=== PATIENT | male | born 2000 | race Hispanic/Latino ===

== ENCOUNTER 2024-03-13 05:46 | Observation (INO) | payer SELFPAY ==
[2024-03-13 06:58] LABS: #Basophils 0.04 10x3/uL (0.0-0.2); %Basophils 0.3 % (0.0-1.0); %Eosinophils 1.8 % (0.0-10.0); %Lymphocytes 14.1 % (21.0-51.0); %Monocytes 8.6 % (0.0-10.0); %Neutrophils 74.8 % (42.0-75.0); Hematocrit 44.1 % (42.0-52.0); Hemoglobin 15.1 g/dL (14.0-18.0); Mean Corpuscular HGB CONC 34.2 g/dL (32.0-36.0); Mean Corpuscular Hemoglobin 30.1 pg (27.0-31.0); Mean Platelet Volume 10.6 fL (7.4-10.4); Platelet Count 266 10x3/uL (130-400); RBC Distribution Width 13.3 % (11.5-14.5); Red Blood Cell (RBC) Count 5.01 mill/uL (4.70-6.10)
[2024-03-13 07:21] LABS: ALT (SGPT) 42 U/L (8-55); AST (SGOT) 16 U/L (5-34); Albumin 4.3 g/dL (3.5-5.0); Alkaline Phosphatase 89 U/L (40-110); Anion Gap 16 mmol/L (10-20); BUN (Urea Nitrogen) 14 mg/dL (8.9-20.6); Bilirubin, Total 1.5 mg/dL (0.2-1.2); Calc. Creatinine Clearance 0 mL/min (70-130); Calcium 9.9 mg/dL (7.8-10.44); Carbon Dioxide 22 mmol/L (22-29); Chloride 105 mmol/L (98-107); Estimated GFR 96; Globulin 3.2 g/dL (2.4-3.5); Glucose 88 mg/dL (70-105); Lipase 14 U/L (8-78); Potassium 2.8 mmol/L (3.5-5.1); Protein, Total 7.5 g/dL (6.0-8.3); Sodium 140 mmol/L (136-145)
[2024-03-13 07:25] LABS: Bacteria/HPF None Seen HPF (None Seen); Bilirubin 1+ (Negative); Blood, Urine Negative (Negative); CAUTI Indications for Culture Fever or rigors; Clarity Clear (Clear); Glucose, Urine (Dipstick) Normal (Negative); Ketone, Urine 60 mg/dL (Negative); Leukocyte Negative Leu/uL (Negative); Nitrite Negative (Negative); Protein, Urine (Dipstick) 70 mg/dL (Neg-Trace); RBC/HPF 0-3 HPF (0-3); Specific Gravity, Urine 1.042 (1.002-1.036); Squamous Epithelial 0-3 HPF (0-3); Urobilinogen 3 mg/dL (Less than 2); WBC/HPF 0-3 HPF (0-3)
[2024-03-13 07:29] LABS: Urine Culture Reflex No No
[2024-03-13] MEDS ORDERED: Potassium Chloride 20 MEQ TAB ONE (08:38)
[2024-03-13] MEDS ORDERED: Sodium Chloride 0.9% 100 ML ONE (09:22)
[2024-03-13] MEDS ORDERED: Piperacillin/Tazobactam 3.375 GM VIAL ONE (09:22)
[2024-03-13] MEDS: Pantoprazole 40 MG VIAL IVP SCH (10:05)
[2024-03-13] MEDS ORDERED: Ondansetron PF 4 MG/2 ML Vial IVP PRN (10:52)
[2024-03-13] MEDS ORDERED: Acetaminophen 325 MG TAB PO PRN (10:52)
[2024-03-13] MEDS ORDERED: Guaifenesin DM 100-10/5 ML UDCUP PO PRN (10:52)
[2024-03-13] MEDS ORDERED: Ipratropium/Albuterol 3 ML NEB NEB PRN (10:54)
[2024-03-13] MEDS: Dextrose 5%-Lactated Ringers 1,000 ML IV SCH (11:00)
[2024-03-13 11:08] VITALS: BMI 20.1
[2024-03-13] MEDS ORDERED: Iopamidol-370 76% 500 ML MDV (1 ML CHARGE) ONE (11:59)
[2024-03-13 12:09] LABS: Amphetamine Detected (NotDetected); Barbiturates Screen Not Detected (NotDetected); Benzodiazepine Screen Not Detected (NotDetected); Cocaine Metabolite Screen Not Detected (NotDetected); Methadone Not Detected (NotDetected); Methamphetamine Detected (NotDetected); Opiate Screen Not Detected (NotDetected); Oxycodone Screen Not Detected (NotDetected); Phencyclidine (PCP) Not Detected (NotDetected); THC/Cannabinoid Screen Detected (NotDetected); Tricyclic Screen Not Detected (NotDetected)
[2024-03-13 13:06] LABS: Acetaminophen Less than 10 mcg/mL (Less than 10); Alcohol Less than 10.0 mg/dL (Less than 10); Salicylate Less than 8.0 mg/dL (Less than 8.0)
[2024-03-13] MEDS ORDERED: Potassium Chloride 20 MEQ (100 mL) BAG ONE (16:27)
[2024-03-13] MEDS: Potassium Chloride 20 MEQ in Premix 1 BAG IVPB SCH (16:42)
[2024-03-13] MEDS ORDERED: Dexamethasone 10 MG/ML VIAL ONE (17:40)
[2024-03-13] MEDS ORDERED: LevoFLOXacin 500 MG TAB ONE (20:01)
[2024-03-13] MEDS ORDERED: Pantoprazole 40 MG VIAL ONE (20:12)
[2024-03-13] MEDS ORDERED: Senokot S 8.6-50 MG TAB ONE (20:15)
[2024-03-13] MEDS: LevoFLOXacin 500 MG TAB PO SCH (20:56)
[2024-03-13] MEDS: Senokot S 8.6-50 MG TAB PO SCH (20:56)
[2024-03-14 05:36] LABS: #Basophils Less than 0.03 10x3/uL (0.0-0.2); %Basophils 0.3 % (0.0-1.0); %Eosinophils 7.1 % (0.0-10.0); %Lymphocytes 26.1 % (21.0-51.0); %Monocytes 13.9 % (0.0-10.0); %Neutrophils 52.2 % (42.0-75.0); Hematocrit 38.8 % (42.0-52.0); Mean Corpuscular HGB CONC 33.5 g/dL (32.0-36.0); Mean Corpuscular Hemoglobin 30.1 pg (27.0-31.0); Mean Corpuscular Volume 89.8 fL (78.0-98.0); Mean Platelet Volume 11.1 fL (7.4-10.4); Platelet Count 193 10x3/uL (130-400); RBC Distribution Width 13.6 % (11.5-14.5); Red Blood Cell (RBC) Count 4.32 mill/uL (4.70-6.10)
[2024-03-14] MEDS: Tetrahydrozoline 0.05% OPTH 15 ML BOT EA EYE SCH (05:41)
[2024-03-14] MEDS: LevoFLOXacin 500 MG TAB PO SCH (05:41)
[2024-03-14 06:33] LABS: ALT (SGPT) 26 U/L (8-55); AST (SGOT) 9 U/L (5-34); Albumin 3.1 g/dL (3.5-5.0); Alkaline Phosphatase 62 U/L (40-110); Anion Gap 9 mmol/L (10-20); BUN (Urea Nitrogen) 8 mg/dL (8.9-20.6); Bilirubin, Total 0.6 mg/dL (0.2-1.2); Calc. Creatinine Clearance 100 mL/min (70-130); Calcium 8.4 mg/dL (7.8-10.44); Carbon Dioxide 21 mmol/L (22-29); Chloride 113 mmol/L (98-107); Estimated GFR 120; Globulin 2.5 g/dL (2.4-3.5); Glucose 132 mg/dL (70-105); Potassium 3.7 mmol/L (3.5-5.1); Protein, Total 5.6 g/dL (6.0-8.3); Sodium 139 mmol/L (136-145)
[2024-03-14] MEDS: Enoxaparin 40 MG (0.4 mL) SYRINGE SC SCH (08:39)
[2024-03-14 15:59] VITALS: BP 107/68; TEMP 97.9
[2024-03-14] MEDS: FLU (Fluarix Triv) TS24-25(6MOS UP)/PF 45 MCG/0.5 ML Syringe IM ONE (15:59)
== END 2024-03-14 17:05 | disposition home or self-care (01) ==
LOC: ERS 05:46 → ERHOLD 10:57 → MSONC 03-14 02:23
PROVIDERS: ADMIT Internal Medicine; ATTEND Hospitalist
DX: J98.2 Interstitial emphysema (principal); E86.0 Dehydration; E87.6 Hypokalemia; F19.10 Other psychoactive substance abuse, uncomplicated; Z79.899 Other long term (current) drug therapy
CPT/HCPCS: 36415; 71250; 74177; 80053; 80306; 80307; 81001; 83690; 85025; 96372; 96374; 96375; 96376; G0378; J1100; J1650; J2470; J2543; J3480; Q9967